=== PATIENT | male | born 1990 | race Two or more races ===

== ENCOUNTER 2021-09-06 08:23 | Emergency (ER) | payer MEDICAID ==
[~2021-09-06] VITALS: Ht 165.1 cm; Wt 108.9 kg
[2021-09-06 08:32] VITALS: BP 140/87
--- NOTE | 2021-09-06 08:40 | NUR ---
AT BEDSIDE FOR EVAL.
--- NOTE | 2021-09-06 09:01 | NUR ---
PT IS BACK FROM THE CT SCAN.
[2021-09-06] MEDS ORDERED: IBUP-1955 PO (10:02)
[2021-09-06] MEDS ORDERED: CYCL5TAB PO (10:05)
--- NOTE | 2021-09-06 10:19 | NUR ---
Patient discharged to home in stable condition. Written and verbal after care instructions given. Patient verbalizes understanding of instruction.
== END 2021-09-06 10:20 | disposition home or self-care (01) ==
LOC: ER 08:29
DX: M54.50 Low back pain, unspecified (principal); F17.200 Nicotine dependence, unspecified, uncomplicated; Z79.1 Long term (current) use of non-steroidal anti-inflammatories (NSAID); Z79.899 Other long term (current) drug therapy
CPT/HCPCS: 72131-TC